=== PATIENT | female | born 1950 | race Caucasian/White ===

== ENCOUNTER 2018-08-29 08:33 | Outpatient (CLI) | payer MEDICARE, OTHER ==
--- NOTE | 2018-08-29 09:47 | BD ---
Exam: DEXA Bone Density History: Post-menopausal. Lumbar Spine: BMD (g/cm2) L1 0.769 T-Score: -2.0 L2 0.827 T-Score: -1.8 L3 0.902 T-Score: -1.7 L4 0.917 T-Score: -1.3 L1-L4 0.858 T-Score: -1.7 Femoral Neck: 0.595 T-Score: -2.3 Total Femur: 0.790 T-Score: -1.2 Impression: Osteopenia of the lumbar spine and left femoral neck. POS: [facility]
== END 2018-08-29 08:34 | disposition home or self-care (01) ==
LOC: BICMAMMO 08:33
PROVIDERS: ATTEND Internal Medicine Rheumatology
DX: M81.0 Age-related osteoporosis without current pathological fracture (principal); M85.89 Other specified disorders of bone density and structure, multiple sites
CPT/HCPCS: 77080

== ENCOUNTER 2019-08-30 09:17 | Outpatient (CLI) | payer MEDICARE, BC ==
--- NOTE | 2019-08-30 11:31 | BD ---
ONE DENSITOMETRY USING DEXA: Date: 08/30/2019 HISTORY: 69-year-old female with age-related osteoporosis without current pathological fracture. Screening for postmenopausal osteoporosis. FINDINGS: Lumbar Spine: BMD (g/cm2) L1 0.779 T-Score: -1.9 Z-Score: -0.1 L2 0.831 T-Score: -1.8 Z-Score: 0.2 L3 0.955 T-Score: -1.2 Z-Score: 1.0 L4 0.956 T-Score: -1.0 Z-Score: 1.2 L1-L4 0.886 T-Score: -1.5 Z-Score: 0.6 Femoral Neck: 0.601 T-Score: -2.2 Z-Score: 0.5 Total Femur: 0.774 T-Score: -1.4 Z-Score: 0.1 There has been interval improvement of 3.2% in the bone mineral density of the lumbar spine and a red uction of 2% in the bone mineral density of the left proximal femur since 08/29/2018. IMPRESSION: Osteopenia. POS: OFF
== END 2019-08-30 09:18 | disposition home or self-care (01) ==
LOC: BICMAMMO 09:17
PROVIDERS: ATTEND Internal Medicine
DX: M81.0 Age-related osteoporosis without current pathological fracture (principal); M85.89 Other specified disorders of bone density and structure, multiple sites
CPT/HCPCS: 77080

== ENCOUNTER 2020-10-05 10:32 | Outpatient (CLI) | payer BC, MEDICARE | END 2020-10-05 10:33 | disposition home or self-care (01) | LOC: BICMAMMO 10:32 | PROVIDERS: ATTEND Internal Medicine Rheumatology | DX: M81.0 Age-related osteoporosis without current pathological fracture (principal); M85.89 Other specified disorders of bone density and structure, multiple sites | CPT/HCPCS: 77080 ==

== ENCOUNTER 2022-10-19 09:38 | Outpatient (CLI) | payer BC | END 2022-10-19 09:39 | disposition home or self-care (01) | LOC: BICMAMMO 09:38 | PROVIDERS: ATTEND Family Medicine | DX: Z13.820 Encounter for screening for osteoporosis (principal); Z78.0 Asymptomatic menopausal state; M85.89 Other specified disorders of bone density and structure, multiple sites; M85.852 Other specified disorders of bone density and structure, left thigh | CPT/HCPCS: 77080 ==